=== PATIENT | female | born 1960 ===

== ENCOUNTER 2019-03-09 10:22 | Emergency (ER) | payer SELFPAY ==
[2019-03-09 12:39] LABS: ABS Basophils 0.1 10^3/ul (0-0.2); ABS Lymphocytes 1.1 10^3/ul (1.0-4.8); ABS Monocytes 0.6 10^3/ul (0-0.8); ABS Neutrophils 4.2 10^3/ul (1.5-7.7); Eosinophil % 0.1 %; Hematocrit 47 % (35-47); Hemoglobin 16.2 g/dL (12.0-16.0); Lymphocyte % 18.2 %; Mean Corpuscular HGB Conc 35 g/dL (31-36); Mean Corpuscular Hemoglobin 31 pg (27-31); Mean Corpuscular Volume 89 fL (80-97); Mean Platelet Volume 9.7 fL (7.4-10.4); Platelet Count 269 10^3/uL (150-450); Red Blood Count 5.26 10^6 /uL (3.70-4.87); Red Cell Distribution Width 13 % (10-15); White Blood Count 5.9 10^3/uL (3.5-10.8)
[2019-03-09 12:46] LABS: Albumin/Globulin Ratio 1.3 (1-3); BUN/Creatinine Ratio 24.6 (8-20); Calcium 9.1 mg/dL (8.6-10.3); EGFR Non-African American 86.8 (>60); Potassium 3.8 mmol/L (3.5-5.0); Total Bilirubin 0.3 mg/dL (0.2-1.0)
[2019-03-09 12:51] LABS: Influenza A Molecular NEGATIVE (Negative); Influenza B Molecular NEGATIVE (Negative)
--- NOTE | 2019-03-09 13:38 | ED ---
Influenza-Like Illness - HPI Summary HPI Summary: This pt is a 58 y/o female presenting to [facility] c/o cough and cold symptoms since 3 days ago. Pt reports chills, fevers, dry nonproductive cough, shortness of breath and body aches. Denies chest pain, nausea, vomiting. Pt is former smoker and quit 3 days ago on 03/06/19. PMHx: depression. She denies any other PMHx. Denies alcohol or drug use. - History of Current Complaint Chief Complaint: EDFluSymptoms Time Seen by Provider: 03/09/19 13:20 Hx Obtained From: Patient Onset/Duration: Lasting Days, Still Present Severity: Moderate Associated Signs & Symptoms: Fever, F/C, Myalgia, Cough - Allergy/Home Medications Allergies/Adverse Reactions: Allergies Allergy/AdvReac Type Severity Reaction Status Date / Time No Known Allergies Allergy Verified 07/15/13 07:19 Home Medications: Home Medications Citalopram TAB* [CeleXA TAB*] 40 mg PO DAILY 03/09/19 [History Confirmed ] PMH/Surg Hx/FS Hx/Imm Hx Endocrine/Hematology History: Denies: Hx Diabetes, Hx Thyroid Disease Cardiovascular History: Denies: Hx Congestive Heart Failure, Hx Hypertension, Hx Pacemaker/ICD, Other Cardiovascular Problems/Disorders Respiratory History: Denies: Hx Asthma, Hx Chronic Obstructive Pulmonary Disease (COPD), Other Respiratory Problems/Disorders GI History: Denies: Hx Ulcer Psychiatric History: Reports: Hx Depression - Surgical History Surgical History: None Infectious Disease History: No Infectious Disease History: Denies: Hx Hepatitis, Hx Human Immunodeficiency Virus (HIV), History Other Infectious Disease, Traveled Outside the [place] in Last 30 Days - Family History Known Family History: Negative: Cardiac Disease, Hypertension, Diabetes - Social History Alcohol Use: None Substance Use Type: Reports: None Hx Tobacco Use: Yes - quit on 03/06/19 Smoking Status (MU): Former Smoker Type: Cigarettes Amount Used/How Often: 1 ppd Length of Time of Smoking/Using Tobacco: 35 years Have You Smoked in the Last Year: Yes Review of Systems Positive: Fever, Chills Negative: Chest Pain Positive: Shortness Of Breath, Cough Negative: Vomiting, Nausea Positive: Myalgia All Other Systems Reviewed And Are Negative: Yes Physical Exam - Summary Physical Exam Summary: VITAL SIGNS: Reviewed. GENERAL: Patient is a well-developed and nourished female who is lying comfortable in the stretcher. Patient is not in any acute respiratory distress. HEAD AND FACE: No signs of trauma. No ecchymosis, hematomas or skull depressions. No sinus tenderness. EYES: PERRLA, EOMI x 2, No injected conjunctiva, no nystagmus. EARS: Hearing grossly intact. Ear canals and tympanic membranes are within normal limits. MOUTH: Oropharynx within normal limits. NECK: Supple, trachea is midline, no adenopathy, no JVD, no carotid bruit, no c- spine tenderness, neck with full ROM. CHEST: Symmetric, no tenderness at palpation LUNGS: Crackles in both bases of the lungs. Decreased breath sounds. Slight wheezing. CVS: Regular rate and rhythm, S1 and S2 present, no murmurs or gallops appreciated. ABDOMEN: Soft, non-tender. No signs of distention. No rebound, no guarding, and no masses palpated. Bowel sounds are normal. EXTREMITIES: FROM in all major joints, no edema, no cyanosis or clubbing. NEURO: Alert and oriented x 3. No acute neurological deficits. Speech is normal and follows commands. SKIN: Dry and warm Triage Information Reviewed: Yes Vital Signs On Initial Exam: Initial Vitals Temp Pulse Resp BP Pulse Ox 97.6 F 88 18 117/95 93 03/09/19 10:24 03/09/19 10:24 03/09/19 10:24 03/09/19 10:24 03/09/19 10:24 Vital Signs Reviewed: Yes Procedures - Sedation Patient Received Moderate/Deep Sedation with Procedure: No Diagnostics - Vital Signs Vital Signs Temp Pulse Resp BP Pulse Ox 03/09/19 12:22 97.3 F 90 18 124/90 93 03/09/19 10:24 97.6 F 88 18 117/95 93 - Laboratory Lab Results: Lab Results 03/09/19 03/09/19 03/09/19 Range/Units 12:18 12:18 12:26 WBC 5.9 (3.5-10.8) 10^3/uL RBC 5.26 H (3.70-4.87) 10^6 /uL Hgb 16.2 H (12.0-16.0) g/dL Hct 47 (35-47) % MCV 89 (80-97) fL MCH 31 (27-31) pg MCHC 35 (31-36) g/dL RDW 13 (10-15) % Plt Count 269 (150-450) 10^3/uL MPV 9.7 (7.4-10.4) fL Neut % (Auto) 71.0 % Lymph % (Auto) 18.2 % Mellette % (Auto) 9.8 % Eos % (Auto) 0.1 % Baso % (Auto) 0.9 % Absolute Neuts (auto) 4.2 (1.5-7.7) 10^3/ul Absolute Lymphs (auto) 1.1 (1.0-4.8) 10^3/ul Absolute Monos (auto) 0.6 (0-0.8) 10^3/ul Absolute Eos (auto) 0.0 (0-0.6) 10^3/ul Absolute Basos (auto) 0.1 (0-0.2) 10^3/ul Absolute Nucleated RBC 0.0 10^3/ul Nucleated RBC % 0.0 Sodium 136 (135-145) mmol/L Potassium 3.8 (3.5-5.0) mmol/L Chloride 103 (101-111) mmol/L Carbon Dioxide 24 (22-32) mmol/L Anion Gap 9 (2-11) mmol/L BUN 17 (6-24) mg/dL Creatinine 0.69 (0.51-0.95) mg/dL Est GFR ( Amer) 105.0 (>60) Est GFR (Non-Af Amer) 86.8 (>60) BUN/Creatinine Ratio 24.6 H (8-20) Glucose 191 H (70-100) mg/dL Calcium 9.1 (8.6-10.3) mg/dL Total Bilirubin 0.30 (0.2-1.0) mg/dL AST 19 (13-39) U/L ALT 12 (7-52) U/L Alkaline Phosphatase 90 (34-104) U/L Total Protein 7.0 (6.4-8.9) g/dL Albumin 4.0 (3.2-5.2) g/dL Globulin 3.0 (2-4) g/dL Albumin/Globulin Ratio 1.3 (1-3) Influenza A (Rapid) Negative (Negative) Influenza B (Rapid) Negative (Negative) Result Diagrams: 03/09/19 12:18 03/09/19 12:18 Lab Statement: Any lab studies that have been ordered have been reviewed, and results considered in the medical decision making process. - Radiology Chest XR Radiology Interpretation Completed By: Radiologist Summary of Radiographic Findings: IMPRESSION: Hyperinflated lung ace without evidence of pneumonia. Chronic pleural changes are noted. Dr. Lee has reviewed this report. Flu Symptom Course/Dx - Course Assessment/Plan: This pt is a 58 y/o female presenting to [facility] c/o cough and cold symptoms since 3 days ago. Pt reports chills, fevers, dry nonproductive cough, shortness of breath and body aches. Denies chest pain, nausea, vomiting. Pt is former smoker and quit 3 days ago on 03/06/19. PMHx: depression. She denies any other PMHx. Denies alcohol or drug use. Patient was given DuoNeb since in the emergency room the patient was wheezing. Chest x-ray shows no pneumonia. Blood test results without any significant abnormality except for glucose of 191 and CRP of 50. The patient reported that she had just finished eating. After the patient was given DuoNeb and solu-medrol the symptoms improved. The patient is feeling better and has no complaints. I did give the patient Rocephin since the CRP is 50. I believe the patient has bronchitis probably COPD. The patient has been a smoker for many years. Since the patient is feeling better the patient will be discharged home with follow from her primary care physician. Patient will be given a prescription for Z-Joni. Patient is hemodynamically stable. She was instructed to return to the ED for any worsening or new symptoms. - Diagnoses Differential Diagnosis/HQI/PQRI: Positive: Bronchitis, Influenza, Pneumonia, Upper Respiratory Infection Provider Diagnoses: COPD (chronic obstructive pulmonary disease), Bronchitis Discharge ED - Sign-Out/Discharge Documenting (check all that apply): Patient Departure - Discharge home - Discharge Plan Condition: Stable Disposition: HOME Prescriptions: Albuterol HFA INHALER* [Ventolin HFA Inhaler*] 1 puff INH Q4H PRN #1 mdi PRN Reason: Wheezing Azithromycin TAB* [Zithromax TAB (Z-JONI) 250 mg #6 tabs] 2 tab PO .TODAY, THEN 1 DAILY #1 joni predniSONE [Prednisone 20 MG TAB] 20 mg PO DAILY #8 tablet Patient Education Materials: Acute Bronchitis (ED), COPD (Chronic Obstructive Pulmonary Disease) (ED) Referrals: [facility] [Outside] Additional Instructions: FOLLOW UP WITH YOUR PRIMARY CARE PROVIDER IN 2-3 DAYS. RETURN TO THE ED FOR ANY NEW OR WORSENING SYMPTOMS. - Billing Disposition and Condition Condition: STABLE Disposition: Home - Attestation Statements Document Initiated by Scribe: Yes Documenting Scribe: Mary Reyes Provider For Whom Elvia is Documenting (Include Credential): Dharmesh Lee MD Scribe Attestation: Mary Bansal, scribed for Dharmesh Lee MD on 03/09/19 at 2144. Scribe Documentation Reviewed: Yes Provider Attestation: The documentation as recorded by the Mary frederick accurately reflects the service I personally performed and the decisions made by , Dharmesh Lee MD Status of Scribe Document: Viewed
[2019-03-09] MEDS ORDERED: Albuterol/Ipratropium NEB.SOL* Albuterol 2.5 MG/Ipratropium 0.5 MG 3 ML INH ONE (13:43)
[2019-03-09] MEDS ORDERED: methylPREDNISolone 125 MG* 2 ML VIAL IV ONE (13:43)
[2019-03-09] MEDS ORDERED: cefTRIAXone(*) 1 GM in NS 0.9% 50 ML* 50 ML IVPB ONE (13:43)
[2019-03-09] MEDS ORDERED: NS 0.9% 1000 ML** 1,000 ML IV ONE (13:44)
[2019-03-09 15:03] LABS: C Reactive Protein 50.07 mg/L (<8.01)
[2019-03-09 15:32] VITALS: BP 129/94
== END 2019-03-09 15:30 | disposition home or self-care (01) ==
LOC: ED 10:22
DX: J44.9 Chronic obstructive pulmonary disease, unspecified (principal); R50.9 Fever, unspecified; M79.10 Myalgia, unspecified site; F32.9 Major depressive disorder, single episode, unspecified; Z87.891 Personal history of nicotine dependence
CPT/HCPCS: 36415; 71046; 80053; 85025; 86140; 96361; 96365; 96375; 99283; A9270-GY; J0696; J2930